=== PATIENT | male | born 2000 | race Caucasian/White ===

== ENCOUNTER 2023-05-10 16:44 | Inpatient (IN) | payer BC ==
--- NOTE | 2023-05-10 17:21 | ED ---
Skin/Abscess/FB HPI - General Chief complaint: Skin/Abscess/Foreign Body Stated complaint: infection Time Seen by Provider: 05/10/23 17:11 Source: patient, family, RN notes reviewed Mode of arrival: ambulatory Limitations: no limitations - History of Present Illness Initial comments: Patient is a 22-year-old male presented ER with chief complaint of right second toe infection. Patient was sent here by Dr. Means. Mother is providing most of the HPI due to patient having Aspergers syndrome. Mother states last 05/01/23, they noticed a small wound on the dorsal aspect of the right second toe over the DIP joint. 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 Patient is not a diabetic. Mother states patient was seen at [facility] last week where they attempted to drain and treat with wesf-ocu-biisaio antibiotics. Patient saw Dr. Means today and he advised them to come to the ER for IV antibiotic treatment. Patient denies any fevers but endorses mild chills. Patient states the redness starting to increase incorporating his left toe and dorsal aspect of his foot. He also states that it started draining yesterday. Mother also reports a mass on the posterior side of left auricle. Patient states it does not hurt. - Related Data Allergies Allergy/AdvReac Type Severity Reaction Status Date / Time Penicillins Allergy Rash/Hives Verified 05/10/23 17:06 promethazine [From Phenergan] Allergy Nausea & Verified 05/10/23 17:06 Vomiting Review of Systems ROS Statement: Those systems with pertinent positive or pertinent negative responses have been documented in the HPI. ROS Other: All systems not noted in ROS Statement are negative. Past Medical History Additional Past Medical History / Comment(s): asperger syndrome Past Surgical History: Adenoidectomy, Tonsillectomy General Exam Limitations: no limitations General appearance: alert, in no apparent distress Head exam: Present: atraumatic, normocephalic, normal inspection Neck exam: Present: normal inspection, other (2 cm nodule noted behind the left ear. Nodule is soft and nontender. Feels fluid-filled with 0.5-1 cm extension anteriorly or into the cheek.). Absent: tenderness, meningismus, lymphadenopathy Respiratory exam: Present: normal lung sounds bilaterally. Absent: respiratory distress, wheezes, rales, rhonchi, stridor Cardiovascular Exam: Present: regular rate, normal rhythm, normal heart sounds. Absent: systolic murmur, diastolic murmur, rubs, gallop, clicks Extremities exam: Present: other (Right second toe wound with surrounding erythema, warmth and edema. Erythema is spreading into dorsal aspect of foot. 2+ dorsalis pedis pulse on the right.) Neurological exam: Present: alert, oriented X3, CN II-XII intact Psychiatric exam: Present: normal affect, normal mood Course Vital Signs 05/10/23 17:02 Temperature 98.1 F Pulse Rate 100 Respiratory 16 Rate Blood Pressure 130/84 O2 Sat by Pulse 97 Oximetry Medical Decision Making - Medical Decision Making Was pt. sent in by a medical professional or institution (, PA, CERTIFIED MEDICAL ASSISTANT, urgent care, hospital, or prison...) When possible be specific @ -Dr. Means Did you speak to anyone other than the patient for history (EMS, parent, family, police, friend...)? What history was obtained from this source @ -Mother Did you review nursing and triage notes (agree or disagree)? Why? @ -I reviewed and agree with nursing and triage notes Were old charts reviewed (outside hosp., previous admission, EMS record, old EKG, old radiological studies, urgent care reports/EKG's, prison records)? Report findings @ -No old charts were reviewed Differential Diagnosis (chest pain, altered mental status, abdominal pain women, abdominal pain men, vaginal bleeding, weakness, fever, dyspnea, syncope, headache, dizziness, GI bleed, back pain, seizure, CVA, palpatations, mental health, musculoskeletal)? @ -Differential Musculoskeletal: Muscular strain, contusion, ligament sprain, fracture, arthritis, septic arthritis, bursitis, cellulitis, muscle spasm, nerve compression, DVT, arterial occlusion, herpes zoster, electrolyte abnormality, tumor.... This is not meant to be in all inclusive list EKG interpreted by me (3pts min.). @ -None X-rays interpreted by me (1pt min.). @ -Right foot x-ray shows no acute osseous abnormality. There is some generalized forefoot and midfoot soft tissue swelling. CT interpreted by me (1pt min.). @ -None done U/S interpreted by me (1pt. min.). @ -None done What testing was considered but not performed or refused? (CT, X-rays, U/S, labs)? Why? @ -None What meds were considered but not given or refused? Why? @ -None Did you discuss the management of the patient with other professionals (professionals i.e. , PA, CERTIFIED MEDICAL ASSISTANT, lab, RT, psych nurse, social work instructor, vending machine operator, teacher, postal delivery officer, telephonic nurse case manager)? Give summary @ -[Yes, I spoke with Dr. Hagan for admission. Was smoking cessation discussed for >3mins.? @ -No Was critical care preformed (if so, how long)? @ -No Were there social determinants of health that impacted care today? How? (Homelessness, low income, unemployed, alcoholism, drug addiction, transportation, low edu. Level, literacy, decrease access to med. care, senior care, rehab)? @ -No Was there de-escalation of care discussed even if they declined (Discuss DNR or withdrawal of care, Hospice)? DNR status @ -No What co-morbidities impacted this encounter? (DM, HTN, Smoking, COPD, CAD, Cancer, CVA, ARF, Chemo, Hep., AIDS, mental health diagnosis, sleep apnea, morbid obesity)? @ -None Was patient admitted / discharged? Hospital course, mention meds given and route, prescriptions, significant lab abnormalities, going to OR and other pertinent info. @ -Admitted. Patient is a 22-year-old male presented ER with chief complaint of right toe infection. Patient was sent here by Dr. Means. Patient was recently treated with Bactrim and Keflex outpatient. On exam there was some right erythema with streaking proximally. 2+ right dorsalis pedis pulse. Labs are to the ER were significant for white blood cell count of 13.9 and lactic of 3.9. Blood cultures and wound cultures were obtained in the ER. Right foot x-ray shows no acute osseous abnormality. There is some generalized forefoot and midfoot soft tissue swelling. Patient was given 1 L IV bolus and started on IV clindamycin. I spoke with Dr. Hagan for admission. Infectious disease will be consulted. Patient will be admitted in stable condition for further care. Patient expressed understanding and agreement with care plan. Undiagnosed new problem with uncertain prognosis? @ -No Drug Therapy requiring intensive monitoring for toxicity (Heparin, Nitro, Insulin, Cardizem)? @ -No Were any procedures done? @ -No Diagnosis/symptom? @ -Cellulitis Acute, or Chronic, or Acute on Chronic? @ -Acute Uncomplicated (without systemic symptoms) or Complicated (systemic symptoms)? @ -Complicated Side effects of treatment? @ -No Exacerbation, Progression, or Severe Exacerbation? @ -No Poses a threat to life or bodily function? How? (Chest pain, [place], [place], pneumonia, PE, COPD, DKA, ARF, appy, cholecystitis, CVA, Diverticulitis, Homicidal, Suicidal, threat to staff... and all critical care pts) @ -Possibly - Lab Data Result diagrams: 05/10/23 18:20 05/10/23 18:20 Lab Results 05/10/23 05/10/23 05/10/23 Range/Units 18:20 18:20 18:20 WBC 13.9 H (3.8-10.6) k/uL RBC 5.53 (4.30-5.90) m/uL Hgb 16.6 (13.0-17.5) gm/dL Hct 48.1 (39.0-53.0) % MCV 87.0 (80.0-100.0) fL MCH 30.1 (25.0-35.0) pg MCHC 34.6 (31.0-37.0) g/dL RDW 11.9 (11.5-15.5) % Plt Count 299 (150-450) k/uL MPV 7.2 Neutrophils % 79 % Lymphocytes % 12 % Monocytes % 7 % Eosinophils % 1 % Basophils % 0 % Neutrophils # 10.9 H (1.3-7.7) k/uL Lymphocytes # 1.7 (1.0-4.8) k/uL Monocytes # 0.9 (0-1.0) k/uL Eosinophils # 0.1 (0-0.7) k/uL Basophils # 0.0 (0-0.2) k/uL Sodium 140 (137-145) mmol/L Potassium 3.7 (3.5-5.1) mmol/L Chloride 101 (98-107) mmol/L Carbon Dioxide 20 L (22-30) mmol/L Anion Gap 19 mmol/L BUN 12 (9-20) mg/dL Creatinine 0.93 (0.66-1.25) mg/dL Est GFR (CKD-EPI)AfAm >90 (>60 ml/min/1.73 sqM) Est GFR (CKD-EPI)NonAf >90 (>60 ml/min/1.73 sqM) Glucose 107 H (74-99) mg/dL Plasma Lactic Acid Devon 3.9 H* (0.7-2.0) mmol/L Calcium 10.1 (8.4-10.2) mg/dL Total Bilirubin 0.7 (0.2-1.3) mg/dL AST 34 (17-59) U/L ALT 37 (4-49) U/L Alkaline Phosphatase 108 (38-126) U/L Total Protein 7.7 (6.3-8.2) g/dL Albumin 4.7 (3.5-5.0) g/dL - Radiology Data Radiology results: report reviewed, image reviewed Disposition Clinical Impression: Cellulitis Disposition: ADMITTED IP TO THIS [facility] Condition: Stable Time of Disposition: 19:59
[2023-05-10] MEDS ORDERED: LIDOCAINE/EPINEPHR/TETRACAINE 5 ML BOTTLE TOPICAL ONE (17:47)
[2023-05-10 18:46] LABS: Basophils % (A) 0 %; Eosinophils # (A) 0.1 k/uL (0-0.7); Eosinophils % (A) 1 %; HCT 48.1 % (39.0-53.0); HGB 16.6 gm/dL (13.0-17.5); Lymphocytes # (A) 1.7 k/uL (1.0-4.8); Lymphocytes % (A) 12 %; MCH 30.1 pg (25.0-35.0); MCHC 34.6 g/dL (31.0-37.0); Mean Platelet Volume 7.2; Monocytes # (A) 0.9 k/uL (0-1.0); Monocytes % (A) 7 %; Neutrophils # (A) 10.9 k/uL (1.3-7.7); Neutrophils % (A) 79 %; Platelet Count 299 k/uL (150-450); RBC 5.53 m/uL (4.30-5.90); RDW 11.9 % (11.5-15.5); WBC 13.9 k/uL (3.8-10.6)
--- NOTE | 2023-05-10 18:59 | XR ---
EXAMINATION TYPE: XR foot complete RT DATE OF EXAM: 05/10/2023 COMPARISON: NONE HISTORY: 22-year-old male with right foot infection, pain TECHNIQUE: 3 views FINDINGS: There is some generalized forefoot and midfoot soft tissue swelling. No retained radiopaque foreign body is seen. No periostitis or osteolysis. No acute fracture, subluxation, or dislocation s een. IMPRESSION: Some generalized forefoot and midfoot soft tissue swelling. No acute osseous abnormality seen.
[2023-05-10 19:09] LABS: ALT 37 U/L (4-49); AST 34 U/L (17-59); African American GFR (CKD) >90 (>60 ml/min/1.73 sqM); Albumin 4.7 g/dL (3.5-5.0); Alkaline Phosphatase 108 U/L (38-126); Anion Gap 19 mmol/L; Blood Urea Nitrogen 12 mg/dL (9-20); Calcium 10.1 mg/dL (8.4-10.2); Carbon Dioxide 20 mmol/L (22-30); Chloride 101 mmol/L (98-107); Glucose 107 mg/dL (74-99); Non-African American GFR(CKD) >90 (>60 ml/min/1.73 sqM); Potassium 3.7 mmol/L (3.5-5.1); Sodium 140 mmol/L (137-145); Total Bilirubin 0.7 mg/dL (0.2-1.3); Total Protein 7.7 g/dL (6.3-8.2)
[2023-05-10] MEDS ORDERED: SODIUM CHLORIDE 0.9% 1,000 ML IV STA (19:27)
[2023-05-10] MEDS ORDERED: CLINDAMYCIN 300 MG in DEXTROSE 5% IN WATER 50 ML IVPB STA ×2 (20:03)
[2023-05-10] MEDS ORDERED: NALOXONE 0.4 MG/ML 1 ML VIAL IV PRN (20:07)
[2023-05-10] MEDS ORDERED: ACETAMINOPHEN TAB 325 MG TAB PO PRN (20:07)
[2023-05-10] MEDS ORDERED: IBUPROFEN ORAL SUSP 100 MG/5 ML CUP PO PRN (21:24)
[2023-05-10] MEDS: LORazepam 1 MG TAB PO PRN (21:52)
[2023-05-11] MEDS: SODIUM CHLORIDE 0.9% 1,000 ML IV SCH ×3 (09:21→10:45)
[2023-05-11] MEDS ORDERED: VANCOMYCIN IV PER PHARMACY 1 EACH MISC MISCELLANE PRN (09:22)
[2023-05-11] MEDS: VANCOMYCIN 1,500 MG in SODIUM CHLORIDE 0.9% 500 ML 500 ML IVPB SCH ×2 (10:35→17:43)
--- NOTE | 2023-05-11 21:10 | P.HPIM ---
History of Present Illness H&P Date: 05/10/23 Chief Complaint: Right foot infection 22-year-old male presented ER with chief complaint of right second toe infection. Patient was sent here by Dr. Means. Mother is providing most of the HPI due to patient having Aspergers syndrome. Mother states last 05/01/23, they noticed a small wound on the dorsal aspect of the right second toe over the DIP joint. 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 Patient is not a diabetic. Mother states patient was seen at [facility] last week where they attempted to drain and treat with pxki-dep-hxlnmog antibiotics. Patient saw Dr. Means today and he advised them to come to the ER for IV antibiotic treatment. Patient denies any fevers but endorses mild chills. Patient states the redness starting to increase incorporating his left toe and dorsal aspect of his foot. He also states that it started draining yesterday. Mother also reports a mass on the posterior side of left auricle. Patient states it does not hurt. ---white blood cell count of 13.9 and lactic of 3.9. Blood cultures and wound cultures were obtained in the ER. Right foot x-ray shows no acute osseous abnormality. There is some generalized forefoot and midfoot soft tissue swelling. Patient was given 1 L IV bolus and started on IV clindamycin. Review of Systems REVIEW OF SYSTEMS: CONSTITUTIONAL: No fever, no malaise, no fatigue. HEENT: No recent visual problems or hearing problems. Denied any sore throat. CARDIOVASCULAR: No chest pain, orthopnea, PND, no palpitations, no syncope. PULMONARY: No shortness of breath, no cough, no hemoptysis. GASTROINTESTINAL: No diarrhea, no nausea, no vomiting, no abdominal pain. NEUROLOGICAL: No headaches, no weakness, no numbness. HEMATOLOGICAL: Denies any bleeding or petechiae. GENITOURINARY: Denies any burning micturition, frequency, or urgency. MUSCULOSKELETAL/RHEUMATOLOGICAL: Denies any joint pain, swelling, or any muscle pain. ENDOCRINE: Denies any polyuria or polydipsia. The rest of the 14-point review of systems is negative. Past Medical History Additional Past Medical History / Comment(s): asperger syndrome Past Surgical History: Adenoidectomy, Tonsillectomy Medications and Allergies Home Medications Medication Instructions Recorded Confirmed Type Ibuprofen Oral Susp [Motrin Oral 200 mg PO Q4-6H PRN 05/10/23 05/10/23 History Susp] Sulfamethox-Tmp 200-40Mg/5Ml 20 ml PO BID 05/10/23 05/10/23 History [Bactrim Suspension] cephALEXin [Keflex Oral Susp] 500 mg PO QID 05/10/23 05/10/23 History Allergies Allergy/AdvReac Type Severity Reaction Status Date / Time Penicillins Allergy Rash/Hives Verified 05/10/23 21:03 promethazine [From Phenergan] AdvReac Nausea & Verified 05/10/23 21:03 Vomiting Physical Exam Vitals: Vital Signs Temp Pulse Resp BP Pulse Ox 05/10/23 17:02 98.1 F 100 16 130/84 97 Intake and Output 05/10/23 05/10/23 05/10/23 06:59 14:59 22:59 Other: Weight 79.379 kg General appearance: alert, in no apparent distress Head exam: Present: atraumatic, normocephalic, normal inspection Neck exam: Present: normal inspection, other (2 cm nodule noted behind the left ear. Nodule is soft and nontender. Feels fluid-filled with 0.5-1 cm extension anteriorly or into the cheek.). Absent: tenderness, meningismus, lymphadenopathy Respiratory exam: Present: normal lung sounds bilaterally. Absent: respiratory distress, wheezes, rales, rhonchi, stridor Cardiovascular Exam: Present: regular rate, normal rhythm, normal heart sounds. Absent: systolic murmur, diastolic murmur, rubs, gallop, clicks Extremities exam: Present: other (Right second toe wound with surrounding erythema, warmth and edema. Erythema is spreading into dorsal aspect of foot. 2+ dorsalis pedis pulse on the right.) Neurological exam: Present: alert, oriented X3, CN II-XII intact Psychiatric exam: Present: normal affect, normal mood Results CBC & Chem 7: 05/10/23 18:20 05/10/23 18:20 Labs: Abnormal Lab Results - Last 24 Hours (Table) 05/10/23 05/10/23 05/10/23 Range/Units 18:20 18:20 18:20 WBC 13.9 H (3.8-10.6) k/uL Neutrophils # 10.9 H (1.3-7.7) k/uL Carbon Dioxide 20 L (22-30) mmol/L Glucose 107 H (74-99) mg/dL Plasma Lactic Acid Devon 3.9 H* (0.7-2.0) mmol/L Assessment and Plan Assessment: 1. Right second toe infection/right foot cellulitis - WBC is increased at 13.9 with lactic acid level of 3.9 - Patient has been placed on IV clindamycin; wound culture and blood cultures are obtained - We will plan to monitor CBC, CMP and pro-calcitonin - Consult ID for further recommendations on IV antibiotics 2. Lactic acidosis; resulting from right foot infection; patient received IV fluid bolus in ED with repeat lactic acid level down to 1.0; we will monitor lactic acid levels periodically 3. Leukocytosis; white blood count at 13.9; and has been initiated on IV antibiotics; we will monitor CBC closely DVT prophylaxis; SCDs CODE STATUS; full code
--- NOTE | 2023-05-11 22:52 | P.CONS ---
History of Present Illness - Reason for Consult Consult date: 05/11/23 Cellulitis Requesting physician: Madai Almeida - Chief Complaint Right second toe and right foot swelling and redness x few days - History of Present Illness This is a telehealth visit Patient is a 22-year-old male with a past medical history significant for Asperger's syndrome, patient apparently started having a problem with his right second toe infection for the patient was seen at [facility] on 05/01/2023 apparently patient did have a I&D done and the patient has been treated with a course of oral antibiotics however the patient did have in creasing swelling and redness to the right second toe that was extending to the dorsal aspect of the right foot for the patient was advised to go to the hospital patient has been complaining of pain to the right foot more often relating to throbbing moderate intensity without radiation with associated swelling redness that was getting worse did not have any foul-smelling drainage she did have some chills but no high-grade fever on presentation to the hospital patient was afebrile and no fever have recorded subsequently mildly tachycardic he is he did have white count of 13.9 creatinine 0.93 lactic acid 3.9 liver exams are normal local cultures obtained which are currently pending patient did receive a dose of clindamycin in the ER has been admitted to the hospital patient did have a foot x-ray generalized forefoot and midfoot soft tissue swelling no acute bony abnormality, infectious disease was consulted for further management of antibiotic therapy Review of Systems Positive point and negatives has been mentioned in the HPI, complete review of systems was performed and all other systems are negative Past Medical History Past Medical History: Pneumonia Additional Past Medical History / Comment(s): asperger syndrome, pneumonia as a child a few times History of Any Multi-Drug Resistant Organisms: None Reported Past Surgical History: Adenoidectomy, Tonsillectomy Smoking Status: Never smoker Medications and Allergies Home Medications Medication Instructions Recorded Confirmed Type Ibuprofen Oral Susp [Motrin Oral 200 mg PO Q4-6H PRN 05/10/23 05/10/23 History Susp] Sulfamethox-Tmp 200-40Mg/5Ml 20 ml PO Q12HR 12 Days #1000 ml 05/15/23 Rx [Bactrim Suspension] Allergies Allergy/AdvReac Type Severity Reaction Status Date / Time Penicillins Allergy Rash/Hives Verified 05/10/23 21:03 promethazine [From Phenergan] AdvReac Nausea & Verified 05/10/23 21:03 Vomiting Physical Exam Vitals: Vital Signs Temp Pulse Pulse Resp BP BP Pulse Ox 05/11/23 07:00 98.1 F 114 H 20 126/68 99 05/11/23 00:09 98.0 F 100 16 120/75 96 05/10/23 17:02 98.1 F 100 16 130/84 97 Intake and Output 05/10/23 05/11/23 05/11/23 22:59 06:59 14:59 Other: # Voids 0 Weight 79.379 kg 79.379 kg Middle-age male lying in bed in no distress Lungs unlabored breathing and clear to auscultation Abdominal soft no tenderness Right foot dorsum he did have a swelling and redness with a small wound on the right second toe no purulent drainage or foul smelling reported Exam completed with the help of PRECISION HONING MACHINE OPERATOR Results CBC & Chem 7: 05/14/23 11:32 05/13/23 06:04 Labs: Abnormal Lab Results - Last 24 Hours (Table) 05/10/23 05/10/23 05/10/23 Range/Units 18:20 18:20 18:20 WBC 13.9 H (3.8-10.6) k/uL Neutrophils # 10.9 H (1.3-7.7) k/uL Carbon Dioxide 20 L (22-30) mmol/L Glucose 107 H (74-99) mg/dL Plasma Lactic Acid Devon 3.9 H* (0.7-2.0) mmol/L Assessment and Plan (1) Cellulitis of right foot Status: Acute Code(s): L03.115 - CELLULITIS OF RIGHT LOWER LIMB SNOMED Code(s): 29724820378737372 (2) Failure of outpatient treatment Status: Acute Code(s): Z78.9 - OTHER SPECIFIED HEALTH STATUS SNOMED Code(s): 748701874 (3) Penicillin allergy Status: Acute Code(s): Z88.0 - ALLERGY STATUS TO PENICILLIN SNOMED Code(s): 13660706 Plan: 1- patient is a 22-year male presenting to the hospital with increasing pain and swelling to the right second toe started as a small area of folliculitis/abscess with no secondary cellulitis spreading to the right foot that has failed outpatient oral antibiotic therapy high clinical suspicious for Staphylococcus aureus infection, patient needs aggressive IV antibiotic therapy to prevent further worsening of his infection and toe loss 2-We will start patient on vancomycin pharmacy to doses while watching his kidney function closely while waiting for the culture to finalize Multiple questions concern answered we will follow on clinical condition and cultures to further adjust medication if needed Thank you for this consultation we will follow the patient along with you Dictation was produced using [employer] dictation software. please excuse any grammatical, word or spelling errors. Time with Patient: Greater than 30
[2023-05-11] MEDS: LORazepam 1 MG TAB PO PRN (23:26)
[2023-05-12] MEDS: VANCOMYCIN 1,500 MG in SODIUM CHLORIDE 0.9% 500 ML 500 ML IVPB SCH ×2 (01:50→10:45)
[2023-05-12] MEDS: SODIUM CHLORIDE 0.9% 1,000 ML IV SCH ×3 (08:12→16:48)
[2023-05-12] MEDS ORDERED: VANCOMYCIN TROUGH DUE 1 EACH MISC MISCELLANE ONE (09:00)
[2023-05-12 09:30] LABS: BUN/Creat Ratio 10.83 Ratio (12.00-20.00); Blood Urea Nitrogen 6.5 mg/dL (9.0-27.0); Carbon Dioxide 24.1 mmol/L (21.6-31.8); Chloride 107 mmol/L (96-109); Glucose 100 mg/dL (70-110); Potassium 3.9 mmol/L (3.5-5.5); Sodium 140 mmol/L (135-145)
[2023-05-12 09:36] LABS: Basophils # (A) 0.02 X 10*3/uL (0.00-0.10); Basophils % (A) 0.3 %; Eosinophils # (A) 0.14 X 10*3/uL (0.04-0.35); Eosinophils % (A) 1.8 %; HGB 13.8 g/dL (13.0-17.0); Lymphocytes # (A) 3.06 X 10*3/uL (0.90-5.00); Lymphocytes % (A) 39.7 %; MCHC 34.5 g/dL (32.0-37.0); Mean Platelet Volume 9.7 FL (9.5-12.2); Monocytes # (A) 0.94 X 10*3/uL (0.20-1.00); Monocytes % (A) 12.2 %; NRBC Per 100 WBC 0 X 10*3/uL (0.00-0.01); Neutrophils # (A) 3.54 X 10*3/uL (1.80-7.70); Neutrophils % (A) 45.9 %; Platelet Count 250 X 10*3/uL (140-440); RDW 11.7 % (11.5-14.5); WBC 7.71 X 10*3/uL (4.50-10.00)
[2023-05-12 10:37] LABS: African American GFR (CKD) >90 (>60 ml/min/1.73 sqM); Non-African American GFR(CKD) >90 (>60 ml/min/1.73 sqM)
[2023-05-13] MEDS: VANCOMYCIN 1,500 MG in SODIUM CHLORIDE 0.9% 500 ML 500 ML IVPB SCH ×3 (00:32→23:32)
[2023-05-13] MEDS: SODIUM CHLORIDE 0.9% 1,000 ML IV SCH ×4 (00:35→20:50)
--- NOTE | 2023-05-13 06:29 | P.PN ---
Subjective Progress Note Date: 05/12/23 22-year-old male presented ER with chief complaint of right second toe infection. Patient was sent here by Dr. Means. Mother is providing most of the HPI due to patient having Aspergers syndrome. Mother states last 05/01/23, they noticed a small wound on the dorsal aspect of the right second toe over the DIP joint. 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 Patient is not a diabetic. Mother states patient was seen at [facility] last week where they attempted to drain and treat with vcih-rii-[id number] antibiotics. Patient saw Dr. Means today and he advised them to come to the ER for IV antibiotic treatment. Patient denies any fevers but endorses mild chills. Patient states the redness starting to increase incorporating his left toe and dorsal aspect of his foot. He also states that it started draining yesterday. Mother also reports a mass on the posterior side of left auricle. Patient states it does not hurt. ---white blood cell count of 13.9 and lactic of 3.9. Blood cultures and wound cultures were obtained in the ER. Right foot x-ray shows no acute osseous abnormality. There is some generalized forefoot and midfoot soft tissue swelling. Patient was given 1 L IV bolus and started on IV clindamycin. -- Patient has been evaluated by ID; patient is placed on IV vancomycin with pharmacy dosing service - Patient ID recommendations 05/12/2023 - patient is a 22-year male presenting to the hospital with increasing pain and swelling to the right second toe started as a small area of folliculitis/abscess with no secondary cellulitis spreading to the right foot that has failed outpatient oral antibiotic therapy high clinical suspicious for Staphylococcus aureus infection, patient needs aggressive IV antibiotic therapy to prevent further worsening of his infection and toe loss -We will start patient on vancomycin pharmacy to doses while watching his kidney function closely while waiting for the culture to finalize Objective - Vital Signs Vital signs: Vital Signs Temp 98.1 F 05/12/23 07:00 Pulse 95 05/12/23 07:00 Resp 16 05/12/23 07:00 BP 108/65 05/12/23 07:00 Pulse Ox 98 05/12/23 07:00 FiO2 Intake & Output 05/11/23 05/12/23 05/12/23 18:59 06:59 18:59 Intake Total 1898 Balance 1898 Intake: Intake, IV Titration 1540 Amount Sodium Chloride 0.9% 1, 1040 000 ml @ 130 mls/hr IV . Q7H42M JEREMY Rx#:[id number] Vancomycin 1,500 mg In 500 Sodium Chloride 0.9% 500 ml 500 ml @ 167 mls/hr IVPB Q8H JEREMY Rx#: [id number] Oral 358 Other: # Voids 1 - Exam General appearance: alert, in no apparent distress Head exam: Present: atraumatic, normocephalic, normal inspection Neck exam: Present: normal inspection, other (2 cm nodule noted behind the left ear. Nodule is soft and nontender. Feels fluid-filled with 0.5-1 cm extension anteriorly or into the cheek.). Absent: tenderness, meningismus, lymphadenopathy Respiratory exam: Present: normal lung sounds bilaterally. Absent: respiratory distress, wheezes, rales, rhonchi, stridor Cardiovascular Exam: Present: regular rate, normal rhythm, normal heart sounds. Absent: systolic murmur, diastolic murmur, rubs, gallop, clicks Extremities exam: Present: other (Right second toe wound with surrounding erythema, warmth and edema. Erythema is spreading into dorsal aspect of foot. 2+ dorsalis pedis pulse on the right.) Neurological exam: Present: alert, oriented X3, CN II-XII intact Psychiatric exam: Present: normal affect, normal mood - Labs CBC & Chem 7: 05/12/23 04:04 05/12/23 08:59 Labs: Abnormal Lab Results - Last 24 Hours (Table) 05/12/23 05/12/23 Range/Units 04:04 08:59 BUN 6.5 L (9.0-27.0) mg/dL Creatinine 0.56 L (0.66-1.25) mg/dL BUN/Creatinine Ratio 10.83 L (12.00-20.00) Ratio Microbiology - Last 24 Hours (Table) 05/10/23 18:15 Blood Culture - Preliminary Blood 05/10/23 18:30 Blood Culture - Preliminary Blood 05/10/23 18:20 Gram Stain - Preliminary Toe - Right Second Wound Culture - Preliminary Presumptive Staph aureus Assessment and Plan Assessment: 1. Right second toe infection/right foot cellulitis - WBC is increased at 13.9 with lactic acid level of 3.9 - Patient has been placed on IV clindamycin; wound culture and blood cultures are obtained - We will plan to monitor CBC, CMP and pro-calcitonin - Consult ID for further recommendations on IV antibiotics 2. Lactic acidosis; resulting from right foot infection; patient received IV fluid bolus in ED with repeat lactic acid level down to 1.0; we will monitor lactic acid levels periodically 3. Leukocytosis; white blood count at 13.9; and has been initiated on IV antibiotics; we will monitor CBC closely DVT prophylaxis; SCDs CODE STATUS; full code
[2023-05-13 07:45] LABS: African American GFR (CKD) >90 (>60 ml/min/1.73 sqM); Anion Gap 11 mmol/L; Blood Urea Nitrogen 7 mg/dL (9-20); Calcium 9.1 mg/dL (8.4-10.2); Carbon Dioxide 24 mmol/L (22-30); Chloride 104 mmol/L (98-107); Glucose 85 mg/dL (74-99); Non-African American GFR(CKD) >90 (>60 ml/min/1.73 sqM); Potassium 3.9 mmol/L (3.5-5.1); Sodium 139 mmol/L (137-145)
[2023-05-13 11:01] LABS: Basophils # (A) 0.04 X 10*3/uL (0.00-0.10); Basophils % (A) 0.6 %; Eosinophils # (A) 0.17 X 10*3/uL (0.04-0.35); Eosinophils % (A) 2.6 %; HCT 43.2 % (39.6-50.0); HGB 14.8 g/dL (13.0-17.0); Lymphocytes # (A) 2.73 X 10*3/uL (0.90-5.00); Lymphocytes % (A) 41.6 %; MCHC 34.3 g/dL (32.0-37.0); MCV 87.6 FL (80.0-97.0); Mean Platelet Volume 9.8 FL (9.5-12.2); Monocytes # (A) 0.74 X 10*3/uL (0.20-1.00); Monocytes % (A) 11.3 %; NRBC Per 100 WBC 0 X 10*3/uL (0.00-0.01); Neutrophils # (A) 2.87 X 10*3/uL (1.80-7.70); Neutrophils % (A) 43.6 %; Platelet Count 270 X 10*3/uL (140-440); RBC 4.93 X 10*6/uL (4.40-5.60); RDW 11.7 % (11.5-14.5); WBC 6.57 X 10*3/uL (4.50-10.00)
[2023-05-13 23:30] VITALS: RESP 16
[2023-05-14 01:25] VITALS: TEMP 97.9
--- NOTE | 2023-05-14 04:54 | P.PN ---
Subjective Progress Note Date: 05/13/23 22-year-old male presented ER with chief complaint of right second toe infection. Patient was sent here by Dr. Means. Mother is providing most of the HPI due to patient having Aspergers syndrome. Mother states last 05/01/23, they noticed a small wound on the dorsal aspect of the right second toe over the DIP joint. 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 Patient is not a diabetic. [facility] where they attempted to drain and treat with [id number]-moyunoz antibiotics. Patient saw Dr. Means today and he advised them to come to the ER for IV antibiotic treatment. Patient denies any fevers but endorses mild chills. Patient states the redness starting to increase incorporating his left toe and dorsal aspect of his foot. He also states that it started draining yesterday. Mother also reports a mass on the posterior side of left auricle. Patient states it does not hurt. ---white blood cell count of 13.9 and lactic of 3.9. Blood cultures and wound cultures were obtained in the ER. Right foot x-ray shows no acute osseous abnormality. There is some generalized forefoot and midfoot soft tissue swelling. Patient was given 1 L IV bolus and started on IV clindamycin. -- Patient has been evaluated by ID; patient is placed on IV vancomycin with pharmacy dosing service - Patient ID recommendations 05/12/2023 - patient is a 22-year male presenting to the hospital with increasing pain and swelling to the right second toe started as a small area of folliculitis/abscess with no secondary cellulitis spreading to the right foot that has failed outpatient oral antibiotic therapy high clinical suspicious for Staphylococcus aureus infection, patient needs aggressive IV antibiotic therapy to prevent further worsening of his infection and toe loss -We will start patient on vancomycin pharmacy to doses while watching his kidney function closely while waiting for the culture to finalize 05/13/2023 Patient is seen in follow-up today with infectious disease following maintained on IV antibiotics in the form of vancomycin and showing improvement of the right foot second digit and erythema has significantly gone down patient is able to bend the digit. Infectious disease recommending monitoring overnight and continued IV antibiotics with possible discharge planning in 24 hours. Mother at bedside and questions and concerns were answered to the best of our ability. Patient's cultures were positive for MRSA. Patient is currently afebrile with no reported chest pain or shortness of breath. Patient has been up and walking and elevating the right lower extremity while at rest. Review of systems: Constitutional: No reports of fatigue, fever, or chills Cardiovascular: No reports of chest pain or palpitations Respiratory: No reports of shortness of breath or cough GI: No reports of nausea, vomiting, or diarrhea : No reports of dysuria or retention Neurovascular: No reports of weakness or numbness, reports some improvement in the swelling of the right foot All medications have been reviewed Physical exam: Gen: This is a 22-year-old male who is awake, alert and oriented 3, well- developed, well-nourished HEENT: Head is atraumatic, normocephalic. Pupils equal, round. Sclerae is anicteric. NECK: Supple. No JVD. No lymphadenopathy. No thyromegaly. LUNGS: Clear to auscultation. No wheezes or rhonchi. No intercostal retractions. HEART: Regular rate and rhythm. No murmur. ABDOMEN: Soft. Bowel sounds are present. No masses. No tenderness. EXTREMITIES: No pedal edema. No calf tenderness. NEUROLOGICAL: Patient is awake, alert and oriented x3. Cranial nerves 2 through 12 are grossly intact. Assessment: 1. Right second toe infection/right foot cellulitis with cultures being positive for MRSA 2. Lactic acidosis; secondary to right foot infection; resolved 3. Leukocytosis; white blood count at 13.9; secondary to assessment #1 4. History of Asperger's 5. DVT prophylaxis; SCDs 6. GI prophylaxis 7. full code Plan: Patient is continued on IV vancomycin showing clinical improvement and there is drainage noted of the right foot second toe. Cultures were positive for MRSA and will continue IV antibiotics per ID recommendations for another 24 hours and reevaluate for possible discharge planning tomorrow Patient showing clinical improvement of redness and swelling and patient reports able to move the digit as he was not previously able to do so on admission Follow-up on repeat labs Encourage the patient to elevate right lower extremity while at rest Mother at bedside with questions and concerns were answered to the best of our ability Probable discharge in 24 hours The impression and plan of care has been dictated by Nova Oneil, Nurse Practitioner as directed. Dr. Fede MD I have performed a history and examination and MDM of this patient, discussed the same with the dictator, and agree with the dictator's assessment and plan as written ,documented as a scribe. Based on total visit time, I have performed more than 50% of the visit. Objective - Vital Signs Vital signs: Vital Signs Temp 97.9 F 05/13/23 07:00 Pulse 78 05/13/23 07:00 Resp 15 05/13/23 07:00 BP 96/59 05/13/23 07:00 Pulse Ox 99 05/13/23 07:00 FiO2 Intake & Output 05/12/23 05/13/23 05/13/23 18:59 06:59 18:59 Intake Total 1150 4120 118 Balance 1150 4120 118 Intake: Intake, IV Titration 1150 4120 Amount Sodium Chloride 0.9% 1, 650 3120 000 ml @ 130 mls/hr IV . Q7H42M [facility] Rx#:[id number] Vancomycin 1,500 mg In 500 500 Sodium Chloride 0.9% 500 ml 500 ml @ 167 mls/hr IVPB Q12H [facility] Rx#: [id number] Vancomycin 1,500 mg In 500 Sodium Chloride 0.9% 500 ml 500 ml @ 167 mls/hr IVPB Q8H [facility] Rx#: [id number] Oral 118 Other: # Voids 3 - Labs CBC & Chem 7: 05/13/23 06:04 05/13/23 06:04 Labs: Abnormal Lab Results - Last 24 Hours (Table) 05/12/23 05/13/23 Range/Units 08:59 06:04 BUN 7 L (9-20) mg/dL Creatinine 0.56 L 0.55 L (0.66-1.25) mg/dL Microbiology - Last 24 Hours (Table) 05/10/23 18:15 Blood Culture - Preliminary Blood 05/10/23 18:30 Blood Culture - Preliminary Blood 05/10/23 18:20 Gram Stain - Final Toe - Right Second Wound Culture - Final Methicillin resist S. aureus
[2023-05-14 06:50] VITALS: BP 99/63; PULSE 85
[2023-05-14] MEDS ORDERED: VANCOMYCIN TROUGH DUE 1 EACH MISC MISCELLANE ONE (11:00)
[2023-05-14 12:03] LABS: Basophils # (A) 0.1 k/uL (0-0.2); Basophils % (A) 1 %; Eosinophils # (A) 0.1 k/uL (0-0.7); Eosinophils % (A) 2 %; HCT 47.6 % (39.0-53.0); HGB 16.9 gm/dL (13.0-17.5); Lymphocytes # (A) 2.4 k/uL (1.0-4.8); Lymphocytes % (A) 31 %; MCH 30.6 pg (25.0-35.0); MCHC 35.4 g/dL (31.0-37.0); MCV 86.4 fL (80.0-100.0); Mean Platelet Volume 6.9; Monocytes # (A) 0.6 k/uL (0-1.0); Monocytes % (A) 8 %; Neutrophils # (A) 4.3 k/uL (1.3-7.7); Neutrophils % (A) 57 %; Platelet Count 270 k/uL (150-450); RDW 11.9 % (11.5-15.5); WBC 7.6 k/uL (3.8-10.6)
[2023-05-14] MEDS: VANCOMYCIN 1,500 MG in SODIUM CHLORIDE 0.9% 500 ML 500 ML IVPB SCH (13:09)
[2023-05-14] MEDS: SODIUM CHLORIDE 0.9% 1,000 ML IV SCH (13:16)
[2023-05-14] MEDS ORDERED: VANCOMYCIN 1,250 MG in SODIUM CHLORIDE 0.9% 250 ML IVPB SCH (22:00)
--- NOTE | 2023-05-16 13:28 | CDI ---
Documentation Clarification Form Date: 05/16/2023 12:59:16 PM From: Vanna Pereira RN, CCDS Email: [email or web address] Admit Date: 05/10/2023 07:25:00 PM Patient Name: Damion Feliciano Visit Number: [id number] Discharge Date: 05/14/2023 02:27:00 PM ATTENTION: The Clinical Documentation Specialists (CDI) and [facility] Coding Staff appreciate your assistance in clarifying documentation. Please respond to the clarification below the line at the bottom and electronically sign. The CDI & [facility] Coding staff will review the response and follow-up if needed. Please note: Queries are made part of the Legal Health Record. If you have any questions, please contact the author of this message via ITS. Dr. Mamta Lewis The patient had right foot infection, tachycardia and leukocytosis. Based on this information and the findings below, is there an additional diagnosis that is clinically appropriate for this patient? History/Risk Factors: Aspergers syndrome. Presents with right 2nd toe infection. Clinical Indicators: H&P: "Right second toe infection/right foot cellulitis - WBC is increased at 13.9 with lactic acid level of 3.9. Lactic acidosis; resulting from right foot infection. Leukocytosis; white blood count at 13.9. 05/10 WBC: 13.9 05/10 Lactic acid: 3.9 05/10 Right toe culture: MRSA 05/10 HR 100; 05/11 HR 114-117, RR 22 Treatment: ID Consult: Increasing pain and swelling to the right second toe. Started as a small area of folliculitis/abscess with no secondary cellulitis, spreading to the right foot, that has failed outpatient oral antibiotic therapy. High clinical suspicion for Staphylococcus aureus infection. Patient needs aggressive IV antibiotic therapy to prevent further worsening of his infection and toe loss. Antibiotics: IV Clindamycin 300mg x1 on 05/10; IV Vancomycin 1500mg Q8H 05/11- 05/12; IV Vancomycin 1500mg Q12H 05/13-05/14: IV Bolus: 1L 0.9 NS IV bolus on 05/10 then 130mL/hr 05/11-05/13 Is there an additional diagnosis that is clinically appropriate for this patient? [ ### ] Sepsis, present on admission [ ] No additional diagnosis [ ] Other, please specify [ ] Unable to determine MTDD
--- NOTE | 2023-05-18 10:10 | P.DS ---
Providers Date of admission: 05/10/23 19:25 Expected date of discharge: 05/14/23 Attending physician: Eri Hagan Consults: 05/10/23 20:07 Consult Physician Stat Consulting Provider: Rich Mendenhall Consult Reason/Comments: cellulitis Do you want consulting provider notified?: Yes, Notify in am Primary care physician: Rubin Bright Hospital Course: Final diagnosis 1. Right second toe infection/right foot cellulitis with cultures being positive for MRSA, with failure of outpatient treatment with features of sepsis, present on admission 2. Lactic acidosis; secondary to right foot infection; resolved 3. Leukocytosis; white blood count at 13.9; secondary to assessment #1 4. History of Asperger's 5. DVT prophylaxis; SCDs 6. GI prophylaxis 7. full code Discharge disposition Patient is being discharged in a stable condition with guarded prognosis to home. Patient will follow-up with Dr. Rubin Chase in the outpatient setting upon discharge. Patient is to continue with Bactrim suspension per ID recommendations and close outpatient follow-up with Dr. Mendenhall as scheduled. Total time taken is greater than 35 minutes. Hospital course This is a 22-year-old male who was recently admitted with features of sepsis secondary to right second toe infection with surrounding cellulitis and failure of outpatient treatment. Patient was seen at podiatry office and instructed to come to the ER for further evaluation. Patient was started on IV vancomycin with infectious disease consulted and cultures finalized showing MRSA. Patient will continue on Bactrim suspension per ID recommendations and close outpatient follow-up. Patient to follow-up with primary care provider as well. Please refer to the consultation note for further HPI. Currently no reports of chest pain, shortness of breath, or palpitations. Patient is afebrile. No reports of nausea or vomiting and patient is tolerating diet. Patient will be discharged home today. Physical exam: Gen: This is a 22-year-old male who is awake, alert and oriented 3, well- developed, well-nourished HEENT: Head is atraumatic, normocephalic. Pupils equal, round. Sclerae is anicteric. NECK: Supple. No JVD. No lymphadenopathy. No thyromegaly. LUNGS: Clear to auscultation. No wheezes or rhonchi. No intercostal retractions. HEART: Regular rate and rhythm. No murmur. ABDOMEN: Soft. Bowel sounds are present. No masses. No tenderness. EXTREMITIES: No pedal edema. No calf tenderness. Right second toe with wound noted showing some minimal drainage and improvements in erythema and swelling NEUROLOGICAL: Patient is awake, alert and oriented x3. Cranial nerves 2 through 12 are grossly intact. Please refer to medication reconciliation sheet for a list of medications. The impression and plan of care has been dictated by Nova Oneil, Nurse Practitioner as directed. Dr. Fede MD I have performed a history and examination and MDM of this patient, discussed the same with the dictator, and agree with the dictator's assessment and plan as written ,documented as a scribe. Based on total visit time, I have performed more than 50% of the visit. Patient Condition at Discharge: Stable Plan - Discharge Summary Discharge Rx Participant: No New Discharge Prescriptions: New Sulfamethox-Tmp 200-40Mg/5Ml [Bactrim Suspension] 20 ml PO Q12HR 12 Days #1000 ml Continue Ibuprofen Oral Susp [Motrin Oral Susp] 200 mg PO Q4-6H PRN PRN Reason: Fever And/ Or Pain Discontinued Sulfamethox-Tmp 200-40Mg/5Ml [Bactrim Suspension] 20 ml PO BID cephALEXin [Keflex Oral Susp] 500 mg PO QID Discharge Medication List Ibuprofen Oral Susp [Motrin Oral Susp] 200 mg PO Q4-6H PRN 05/10/23 [History] Sulfamethox-Tmp 200-40Mg/5Ml [Bactrim Suspension] 20 ml PO Q12HR 12 Days #1000 ml 05/15/23 [Rx] Follow up Appointment(s)/Referral(s): Rubin Bright DO [Primary Care Provider] - 1-2 days Rich Mendenhall MD [STAFF PHYSICIAN] - 1 Week Patient Instructions/Handouts: Cellulitis (ED) Activity/Diet/Wound Care/Special Instructions: Activity Limited until follow-up Follow-up with primary care provider on discharge Follow-up with infectious disease outpatient Continue to elevate lower extremity and continue with local wound care and dressing Meticulous handwashing with soap and water Okay to cut Bactrim into small pieces and take with food (pudding, yogurt, applesauce) Discharge Disposition: HOME SELF-CARE
--- NOTE | 2023-05-21 12:53 | P.PN ---
Subjective Progress Note Date: 05/12/23 Principal diagnosis: Reason for follow-up is right second toe and right foot cellulitis This is a telehealth visit Patient is a 22-year-old male with a past medical history significant for Asperger's syndrome, patient apparently started having a problem with his right second toe infection initially evaluated and treated at [facility] ER with oral diabetics however the patient had improvement subsequently presenting to the [facility] ER On today's visit that is 05/12/2023, the patient denies having any fever or any chills, the patient is breathing comfortably on room air, no chest pain shortness of breath or cough. Denies any nausea and vomiting no bone pain no diarrhea pain to the right second toe has decreased in intensity and redness has decreased as well as no drainage Patient did have a white count of 7.71, creatinine 0.56, local cultures pending Objective - Vital Signs Vital signs: Vital Signs Temp 98.1 F 05/12/23 07:00 Pulse 95 05/12/23 07:00 Resp 16 05/12/23 07:00 BP 108/65 05/12/23 07:00 Pulse Ox 98 05/12/23 07:00 FiO2 Intake & Output 05/11/23 05/12/23 05/12/23 18:59 06:59 18:59 Intake Total 1898 Balance 1898 Intake: Intake, IV Titration 1540 Amount Sodium Chloride 0.9% 1, 1040 000 ml @ 130 mls/hr IV . Q7H42M [facility] Rx#:[id number] Vancomycin 1,500 mg In 500 Sodium Chloride 0.9% 500 ml 500 ml @ 167 mls/hr IVPB Q8H [facility] Rx#: [id number] Oral 358 Other: # Voids 1 - Exam Middle-aged lying in bed in no distress Lungs unlabored breathing and clear to auscultation Abdominal soft no tenderness right foot and second toe swelling and redness slightly decreased Exam completed with the help of FISCAL SERVICES DIRECTOR - Labs CBC & Chem 7: 05/14/23 11:32 05/13/23 06:04 Labs: Microbiology - Last 24 Hours (Table) 05/10/23 18:15 Blood Culture - Preliminary Blood 05/10/23 18:30 Blood Culture - Preliminary Blood 05/10/23 18:20 Gram Stain - Preliminary Toe - Right Second Wound Culture - Preliminary Presumptive Staph aureus Assessment and Plan (1) Cellulitis of right foot Status: Acute Code(s): L03.115 - CELLULITIS OF RIGHT LOWER LIMB SNOMED Code(s): 03516313276255090 (2) Failure of outpatient treatment Status: Acute Code(s): Z78.9 - OTHER SPECIFIED HEALTH STATUS SNOMED Code(s): 349559099 (3) Penicillin allergy Status: Acute Code(s): Z88.0 - ALLERGY STATUS TO PENICILLIN SNOMED Code(s): 54667242 Plan: 1- patient is a 22-year male presenting to the hospital with increa sing pain and swelling to the right second toe started as a small area of folliculitis/abscess with no secondary cellulitis spreading to the right foot that has failed outpatient oral antibiotic therapy high clinical suspicious for Staphylococcus aureus infection, patient needs aggressive IV antibiotic therapy to prevent further worsening of his infection and toe loss 2-patient local cultures currently growing staph aureus with sensitivities pending, patient to continue with vancomycin pharmacy to doses while watching his kidney function closely while waiting for the culture to finalize Dictation was produced using [employer] dictation software. please excuse any grammatical, word or spelling errors. Time with Patient: Less than 30
--- NOTE | 2023-05-21 12:55 | P.PN ---
Subjective Progress Note Date: 05/13/23 Principal diagnosis: Reason for follow-up is right second toe and right foot cellulitis Patient is a 22-year-old male with a past medical history significant for Asperger's syndrome, patient apparently started having a problem with his right second toe infection initially evaluated and treated at [facility] ER with oral diabetics however the patient had improvement subsequently presenting to the [facility] ER On today's visit that is 05/13/2023, the patient remains to be afebrile, the patient is breathing comfortably on room air, no chest pain shortness of breath or cough. The patient denies any nausea and vomiting no abdominal pain no diarrhea, the patient pain to the right second toe has decreased in intensity and redness has decreased and no further drainage Patient did have a white count of 6.57, creatinine 0.55, local culture with MRSA Objective - Vital Signs Vital signs: Vital Signs Temp 97.9 F 05/13/23 07:00 Pulse 78 05/13/23 07:00 Resp 15 05/13/23 07:00 BP 96/59 05/13/23 07:00 Pulse Ox 99 05/13/23 07:00 FiO2 Intake & Output 05/12/23 05/13/23 05/13/23 18:59 06:59 18:59 Intake Total 1150 4120 118 Balance 1150 4120 118 Intake: Intake, IV Titration 1150 4120 Amount Sodium Chloride 0.9% 1, 650 3120 000 ml @ 130 mls/hr IV . Q7H42M [facility] Rx#:[id number] Vancomycin 1,500 mg In 500 500 Sodium Chloride 0.9% 500 ml 500 ml @ 167 mls/hr IVPB Q12H [facility] Rx#: [id number] Vancomycin 1,500 mg In 500 Sodium Chloride 0.9% 500 ml 500 ml @ 167 mls/hr IVPB Q8H [facility] Rx#: [id number] Oral 118 Other: # Voids 3 - Exam GENERAL DESCRIPTION: Young male lying in bed in no distress RESPIRATORY SYSTEM: Unlabored breathing , clear to auscultation anteriorly HEART: S1 S2 regular rate and rhythm , ABDOMEN: Soft , no tenderness EXTREMITIES: Right foot and second toe swelling and redness has decreased in intensity and no drainage - Labs CBC & Chem 7: 05/14/23 11:32 12/11/23 06:04 Labs: Abnormal Lab Results - Last 24 Hours (Table) 05/12/23 05/13/23 Range/Units 08:59 06:04 BUN 7 L (9-20) mg/dL Creatinine 0.56 L 0.55 L (0.66-1.25) mg/dL Microbiology - Last 24 Hours (Table) 05/10/23 18:15 Blood Culture - Preliminary Blood 05/10/23 18:30 Blood Culture - Preliminary Blood 05/10/23 18:20 Gram Stain - Final Toe - Right Second Wound Culture - Final Methicillin resist S. aureus Assessment and Plan (1) MRSA (methicillin resistant staph aureus) culture positive Status: Acute Code(s): Z22.322 - CARRIER OR SUSPECTED CARRIER OF METHICILLIN RESIS STAPH SNOMED Code(s): 236656190 (2) Cellulitis of right foot Status: Acute Code(s): L03.115 - CELLULITIS OF RIGHT LOWER LIMB SNOMED Code(s): 63540798424811032 (3) Failure of outpatient treatment Status: Acute Code(s): Z78.9 - OTHER SPECIFIED HEALTH STATUS SNOMED Code(s): 580037094 (4) Penicillin allergy Status: Acute Code(s): Z88.0 - ALLERGY STATUS TO PENICILLIN SNOMED Code(s): 37210156 Plan: 1- patient is a 22-year male presenting to the hospital with increasing pain and swelling to the right second toe started as a small area of folliculitis/abscess with no secondary cellulitis spreading to the right foot that has failed outpatient oral antibiotic therapy high clinical suspicious for Staphylococcus aureus infection, patient needs aggressive IV antibiotic therapy to prevent further worsening of his infection and toe loss 2-patient local cultures has been finalized as MRSA patient did have some clinical improvement still have significant component of cellulitis, we will continue the patient on IV vancomycin for another day before transitioning to oral antibiotic this was discussed with COOKER OPERATOR for admitting team Dictation was produced using [employer] dictation software. please excuse any grammatical, word or spelling errors. Time with Patient: Less than 30
--- NOTE | 2023-05-21 12:57 | P.PN ---
Subjective Progress Note Date: 05/14/23 Principal diagnosis: Reason for follow-up is right second toe and right foot cellulitis Patient is a 22-year-old male with a past medical history significant for Asperger's syndrome, patient apparently started having a problem with his right second toe infection initially evaluated and treated at [facility] ER with oral diabetics however the patient had improvement subsequently presenting to the [facility] ER On today's visit that is 05/14/2023, the patient continues to be afebrile, the patient is breathing comfortably on room air the patient denies chest pain shortness of breath or cough. The patient denies any nausea and vomiting no abdominal pain no diarrhea, the patient pain to the right second toe has decreased in intensity and redness in intensity feeling better and wants to go home Patient did have a white count of 7.6, creatinine 0.55 as of yesterday, local culture with MRSA Objective - Vital Signs Vital signs: Vital Signs Temp 97.9 F 05/14/23 06:40 Pulse 85 05/14/23 06:40 Resp 16 05/14/23 06:40 BP 99/63 05/14/23 06:40 Pulse Ox 98 05/14/23 06:40 FiO2 Intake & Output 05/13/23 05/14/23 05/14/23 18:59 06:59 18:59 Intake Total 118 118 Balance 118 118 Intake: Oral 118 118 Other: # Voids 4 1 - Exam GENERAL DESCRIPTION: Young male lying in bed in no distress RESPIRATORY SYSTEM: Unlabored breathing , clear to auscultation anteriorly HEART: S1 S2 regular rate and rhythm , ABDOMEN: Soft , no tenderness EXTREMITIES: Right foot and second toe swelling and redness has decreased in intensity and no drainage - Labs CBC & Chem 7: 05/14/23 11:32 05/13/23 06:04 Labs: Microbiology - Last 24 Hours (Table) 05/10/23 18:15 Blood Culture - Preliminary Blood 05/10/23 18:30 Blood Culture - Preliminary Blood Assessment and Plan (1) Cellulitis of right foot Status: Acute Code(s): L03.115 - CELLULITIS OF RIGHT LOWER LIMB SNOMED Code(s): 47285732637020093 (2) Failure of outpatient treatment Status: Acute Code(s): Z78.9 - OTHER SPECIFIED HEALTH STATUS SNOMED Code(s): 288478696 (3) MRSA (methicillin resistant staph aureus) culture positive Status: Acute Code(s): Z22.322 - CARRIER OR SUSPECTED CARRIER OF METHICILLIN RESIS STAPH SNOMED Code(s): 412113223 (4) Penicillin allergy Status: Acute Code(s): Z88.0 - ALLERGY STATUS TO PENICILLIN SNOMED Code(s): 22634598 Plan: 1- patient is a 22-year male presenting to the hospital with increasing pain and swelling to the right second toe started as a small area of folliculitis/abscess with no secondary cellulitis spreading to the right foot that has failed outpatient oral antibiotic therapy high clinical suspicious for Staphylococcus aureus infection, patient needs aggressive IV antibiotic therapy to prevent further worsening of his infection and toe loss 2-patient local cultures has been finalized as MRSA patient has shown clinical improvement we will finish therapy with Bactrim DS and a close outpatient follow-up Mother the bedside and multiple questions and concerns were answered Dictation was produced using [employer] dictation software. please excuse any grammatical, word or spelling errors. Time with Patient: Less than 30
== END 2023-05-14 14:27 | disposition home or self-care (01) | DRG 872 ==
LOC: EC 16:44 → OBSVTOIN 19:25 → 6NMEDSUR 19:25
PROVIDERS: ADMIT Internal Medicine; ATTEND Internal Medicine
DX: A41.9 Sepsis, unspecified organism (principal); L03.115 Cellulitis of right lower limb; E87.20 Acidosis, unspecified; F84.5 Asperger's syndrome; D72.829 Elevated white blood cell count, unspecified; Z87.01 Personal history of pneumonia (recurrent)
CPT/HCPCS: 36415; 80048; 80053; 80202; 82565; 83605; 85025; 87040; 87070; 87077; 87186; 87205; 96361; 96365; 99285